=== PATIENT | female | born 1970 ===

== ENCOUNTER 2024-03-15 06:45 | Outpatient (CLI) | payer OTHER ==
[2024-03-15 07:18] LABS: HEMATOCRIT 39.1 % (36.0-45.00); HEMOGLOBIN 12.9 g/dL (12.0-15.00); MEAN CORPUSCULAR HEMOGLOBIN 30.1 pg (27.00-32.0); MEAN CORPUSCULAR HGB CONC 33.1 g/dl (32.0-36.0); PLATELET COUNT 216 K/uL (150-450)
[2024-03-15 07:48] LABS: URINE APPEARANCE Clear; URINE BILIRRUBIN Negative (NEGATIVE); URINE BLOOD Negative; URINE COLOR Yellow; URINE GLUCOSE Negative (NEGATIVE); URINE KETONE Negative (NEGATIVE); URINE LEUKOCYTE Small; URINE NITRATE Negative; URINE PROTEIN Negative (NEGATIVE); URINE UROBILINOGEN 0.2 E.U./dl
[2024-03-15 07:54] LABS: URINE BACTERIA 283.9 uL (0.0-1933); URINE EPITHELIAL CELLS 15.8 uL (0.0-38.8); URINE RBC 34.6 uL (0.0-20.8); URINE WBC 9.6 uL (0.0-23.2)
[2024-03-15 08:55] LABS: BILIRUBIN TOTAL 0.48 mg/dL (0.3-1.2); CALCIUM 9.8 mg/dL (8.5-10.1); CREATININE SERUM 0.93 mg/dL (0.55-1.02); FREE TRIODOTIRONINE 2.85 pg/ml (2.18-3.98); GFR 62.82; GLOBULINA 3.5 G/DL (2.4-3.5); POTASSIUM 4.06 mEq/L (3.5-5.1); T4 FREE 0.82 NG/ML (0.76-1.46); T4 TOTAL 6.26 UG/DL (4.8-13.9); TOTAL PROTEIN 7.5 gm/dL (6.4-8.2); TSH 1.84 uIU/mL (0.358-3.74)
[2024-03-15 09:37] LABS: T3 TOTAL 0.919 ng/ml (0.846-2.02); VITAMIN D3 25 HYDROXY 45.84 ng/ml (30-120)
== END 2024-03-15 06:46 | disposition home or self-care (01) ==
LOC: LAB 06:45
PROVIDERS: ATTEND Obstetrics & Gynecology
DX: N91.2 Amenorrhea, unspecified (principal); E78.89 Other lipoprotein metabolism disorders; E34.9 Endocrine disorder, unspecified; R19.00 Intra-abdominal and pelvic swelling, mass and lump, unspecified site; N39.0 Urinary tract infection, site not specified; E55.9 Vitamin D deficiency, unspecified

== ENCOUNTER 2024-03-15 08:51 | Outpatient (CLI) | payer OTHER | END 2024-03-15 08:58 | disposition home or self-care (01) | LOC: MAMO-SONO 08:51 | PROVIDERS: ATTEND Obstetrics & Gynecology | DX: N64.4 Mastodynia (principal); N63.0 Unspecified lump in unspecified breast ==

== ENCOUNTER 2024-03-15 12:46 | Outpatient (CLI) | payer OTHER | END 2024-03-15 12:47 | disposition home or self-care (01) | LOC: NUCLEAR 12:46 | PROVIDERS: ATTEND Obstetrics & Gynecology | DX: M81.0 Age-related osteoporosis without current pathological fracture (principal) ==